=== PATIENT | female | born 1940 | race Caucasian/White ===

== ENCOUNTER → 2018-07-04 | Outpatient (CLI) | payer MEDICARE ==
[2014-09-13 13:05] VITALS: BP 102/58
[~2018-07-04] MED LIST: 0.9 % SODIUM CHLORIDE 10 ML DISP.SYRIN. ID ONE; ACET500T33 PO; CELE200C PO; CHOL100014 PO; FERR325T14 PO; GADOBUTROL 10 MMOL/10 ML VIAL INT ART ONE; IOHEXOL 300 MG/ML 50 ML VIAL. INT ART ONE; LEVO50TA5 PO; LIDOCAINE 1% Multi-Dose 20 ML VIAL. ID ONE; OMEP20CA9 PO; OXYC-323 PO; TRAM50TA PO; WARF-78 PO; WARF4TAB64 PO
--- NOTE | 2018-07-04 16:50 | KCIC ---
MR arthrogram of the right shoulder Indication: Right shoulder pain. Surgery in 2003. Pain constantly for several years. Pain when lifting. Technique: Intra-articular contrast injected into the glenohumeral joint and is reported separately. Routine 4 plane sequences were obtained, including ABER positioning. FINDINGS: Artifact: Mild to moderate motion degradation. Acromioclavicular joint: Postsurgical changes. Rotator cuff: * Supraspinatus-infraspinatus tendon: Diffuse thinning, could be related to surgical reattachment. There is susceptibility artifact obscuring the attachment, particularly at the infraspinatus. Difficult to exclude a small full-thickness tear. * Subscapularis tendon: Tendinosis, no high-grade tear * Muscle bulk: [id number]-dg-[id number] atrophy * Subacromial subdeltoid bursa: Contrast does opacify the bursa. Articular cartilage: Moderate degenerative change with more advanced chondromalacia at the anterior glenoid. Labrum: Tiny defect at the superior labrum seen on the Aber sequence. Biceps tendon: Mild tendinosis Bones: No lesion or acute fracture. Soft tissue: No acute findings. Impression: 1. Supraspinatus and infraspinatus tendon is diffusely thin, may be due to the nature of the reattachment. No definite through and through full-thickness rupture or retraction, but note that the tendon is partially obscured by susceptibility postsurgical artifact. Subscapularis tendinosis 2. Primary osteoarthritis. 3. Very small superior labral defect or tear. Electronically signed by: Gilberto Rivas MD (07/04/2018 4:47 PM) [facility]
--- NOTE | 2018-07-04 17:16 | KCIC ---
PROCEDURE: Right shoulder injection using fluoroscopic guidance, prior to MR. HISTORY: Shoulder pain. TECHNIQUE: The procedure was explained to the patient as were potential risks, including among others infection, bleeding or allergic reaction. All questions were answered. Informed written and verbal consent was obtained. The shoulder was prepped and draped in the usual sterile manner. Following administration of local anesthetic, a 22-gauge needle was advanced into the anterior shoulder. Following negative aspiration, 12 cc of a solution of 5cc Omnipaque-300 contrast, 5 cc 1% lidocaine, 10 cc normal saline, and 0.1 cc gadolinium was injected without difficulty. The needle was removed. There was good hemostasis at the injection site. The patient left in stable condition without immediate complication. Patient was advised as to possible complications to look out for, and in such event to contact her physician or the emergency room. A single spot image is obtained. FLUOROSCOPY TIME:?30 seconds Electronically signed by: Gilberto Rivas MD (07/04/2018 5:13 PM) [facility]
== END | disposition home or self-care (01) ==
LOC: KCIC 14:03
PROVIDERS: ATTEND Family Medicine
DX: M19.011 Primary osteoarthritis, right shoulder (principal); M94.211 Chondromalacia, right shoulder
CPT/HCPCS: 73040; 73222; A9585; Q9967

== ENCOUNTER → 2018-11-21 | Outpatient (CLI) | payer MEDICARE ==
[2014-09-13 13:05] VITALS: BP 102/58
[~2018-11-21] MED LIST changes: -0.9 % SODIUM CHLORIDE 10 ML DISP.SYRIN. ID ONE; +ATOR40TA59 PO; +CHOL100013 PO; +CLOP75TA PO; -GADOBUTROL 10 MMOL/10 ML VIAL INT ART ONE; -IOHEXOL 300 MG/ML 50 ML VIAL. INT ART ONE; -LIDOCAINE 1% Multi-Dose 20 ML VIAL. ID ONE; -OXYC-323 PO; +OXYC1TAB15 PO
[2018-11-21 14:22] LABS: BASO # 0.1 x10^3/uL (0.0-0.2); BASO % 1 % (0-3); EOS # 0.3 x10^3/uL (0.0-0.7); EOS % 5 % (0-3); HEMATOCRIT 41.2 % (36.0-47.0); HEMOGLOBIN 13.8 g/dL (12.0-15.5); LYMPH # 2.5 x10^3/uL (1.0-4.8); LYMPH % 36 % (24-48); MEAN CORPUSCULAR HEMOGLOBIN 31 pg (25-35); MEAN CORPUSCULAR HGB CONC 34 g/dL (31-37); MEAN CORPUSCULAR VOLUME 92 fL (79-100); MONO # 0.6 x10^3/uL (0.0-1.1); MONO % 8 % (0-9); NEUT # 3.5 x10^3uL (1.8-7.7); NEUT % 50 % (31-73); PLATELET COUNT 222 x10^3/uL (140-400); RED BLOOD COUNT 4.49 x10^6/uL (3.50-5.40)
--- NOTE | 2018-11-21 14:32 | EKG ---
[facility] [address] [place] [address] Test Date: 2018-11-21 Test Time: 14:30:11 Pat Name: ASHA LAKE Department: Room: Gender: F [employer] Development Analyst: : 1940 Requested By: GRACE DANIELS Order Number: [id number] Reading MD: Oswald Joseph Measurements Intervals [place] Rate: 61 P: 52 SC: 182 QRS: 42 QRSD: 72 T: 51 QT: 402 QTc: 406 Interpretive Statements SINUS RHYTHM Electronically Signed On 11-22-2018 14:18:52 [employer] by Oswald Joseph
[2018-11-21 14:39] LABS: ALBUMIN 3.3 g/dL (3.4-5.0); CALCIUM 9.6 mg/dL (8.5-10.1); GFR 53.9; POTASSIUM 4.1 mmol/L (3.5-5.1)
[2018-11-21 15:36] LABS: BILIRUBIN,URINE NEGATIVE (NEG); CLARITY,URINE CLEAR; COLOR,URINE YELLOW; NITRITE,URINE NEGATIVE (NEG); PH,URINE 5.5; PROTEIN,URINE NEGATIVE (NEG-TRACE)
--- NOTE | 2018-11-21 15:45 | RAD ---
EXAM: PA and Lateral Views of the Chest DATE: 11/21/2018 1:53 PM INDICATION: pre op shoulder surgery COMPARISON: No Prior FINDINGS: The heart is not enlarged. Mediastinal and hilar contours are normal. No focal parenchymal airspace opacity. Mild emphysematous changes are seen. No pleural effusion or pneumothorax. IMPRESSION: 1. No radiographic evidence for acute cardiopulmonary process. 2. Mild emphysematous changes are seen. Electronically signed by: Deric Erwin MD (11/21/2018 3:40 PM) [facility]-KC[facility]
[2018-11-21 15:56] LABS: SQUAMOUS EPITHELIAL CELL,UR FEW /LPF
[2018-11-21 15:57] LABS: BACTERIA,URINE 0 /HPF (0-FEW); RBC,URINE 0 /HPF (0-2); WBC,URINE 0 /HPF (0-4)
[2018-11-22 22:11] LABS: HEMOGLOBIN A1C 6.9 % (4.8-5.6)
== END | disposition home or self-care (01) ==
LOC: SURGPAT 13:39
PROVIDERS: ATTEND Orthopaedic Surgery Sports Medicine
DX: Z01.818 Encounter for other preprocedural examination (principal); M19.011 Primary osteoarthritis, right shoulder; J43.9 Emphysema, unspecified
CPT/HCPCS: 36415; 71046; 80048; 81001; 82040; 83036; 85025; 85610; 85651; 85730; 87641; 93005

== ENCOUNTER → 2019-09-19 | Outpatient (CLI) | payer MEDICARE ==
[2018-11-28 11:47] VITALS: BP 122/49
[~2019-09-19] MED LIST changes: +OMEP-229 PO; -OMEP20CA9 PO
--- NOTE | 2019-09-19 14:52 | KCIC ---
MR of the right tibia fibula TECHNIQUE: Right calf swelling for 6 months. History of the hand surgery. TECHNIQUE: Routine multiplanar sequences are obtained. FINDINGS: Diffuse subcutaneous edema. Muscle tissue is intact without evidence of tear, significant edema or hematoma. Visualized bones are intact. No fracture, marrow edema periosteal reaction. Artifact from the replacement is seen at the proximal [id number]. On the distal axial T2-weighted images, a thin flat fluid collection is partially seen, measuring 42 mm AP by 3 mm wide, on the distalmost axial slice, series 10, image 29. This extends into the ankle/foot beyond the [id number]. IMPRESSION: 1. Generalized subcutaneous edema. 2. Small partially visualized flat fluid collection at the lateral ankle. If of concern, dedicated MRI of the ankle could further evaluate. 3. Otherwise no acute findings are seen at the calf. Electronically signed by: Gilberto Rivas MD (09/19/2019 2:49 PM) [facility]
== END | disposition home or self-care (01) ==
LOC: KCIC MRI 11:52
PROVIDERS: ATTEND Orthopaedic Surgery
DX: R60.0 Localized edema (principal); M79.89 Other specified soft tissue disorders
CPT/HCPCS: 73718

== ENCOUNTER → 2019-12-19 | Outpatient (CLI) | payer MEDICARE ==
[2018-11-28 11:47] VITALS: BP 122/49
[~2019-12-19] MED LIST changes: -OMEP-229 PO; +OMEP20CA16 PO
--- NOTE | 2019-12-19 14:32 | KCIC ---
MRI study of the left shoulder without contrast Clinical indications: Left shoulder pain for years which has become worse in recent months. Limited range of motion. No surgical history involving the left shoulder. COMPARISON: Radiographic study of the left shoulder dated May 01, 2019. TECHNIQUE: Noncontrast MRI sequences of the left shoulder were performed in all 3 planes. FINDINGS: There is increased signal throughout the supraspinatus tendon consistent with tendinosis. There is a small full-thickness tear of the lateral aspect of the tendinous insertion onto the greater tubercle. This tear measures 4 mm transversely and 4 mm in AP dimension. There is no retraction of the tendon. Subscapularis tendon is intact. The tendon of the long of the biceps is intact. There is mild degenerative osteoarthritis and spurring of the AC joint. Type III acromial process is seen. These findings may impinge the acromial humeral space. There are moderate chronic cystic changes of the posterior lateral aspect of the humeral head secondary to chronic impingement. No marrow infiltrative process or fracture is seen. There is mild spurring of the glenohumeral joint. Small glenohumeral joint effusion is seen. Mild chondromalacia is seen. No loose body is evident. There is a small degenerative tear of the superior aspect of the glenoid labrum just posterior to the biceps anchor. This is seen on series 12 and image 10. No paralabral ganglion cyst or spinoglenoid notch ganglion cyst is seen. IMPRESSION: Small full-thickness tear of the lateral supraspinatus tendon attachment to the greater tubercle. Small degenerative tear of the superior glenoid labrum just posterior to the biceps anchor. Electronically signed by: Manuel Jordan MD (12/19/2019 2:29 PM) [facility]-KCIC[facility]
== END | disposition home or self-care (01) ==
LOC: KCIC MRI 11:58
PROVIDERS: ATTEND Orthopaedic Surgery Sports Medicine
DX: M75.102 Unspecified rotator cuff tear or rupture of left shoulder, not specified as traumatic (principal); M19.012 Primary osteoarthritis, left shoulder; M25.412 Effusion, left shoulder; M94.212 Chondromalacia, left shoulder
CPT/HCPCS: 73221

== ENCOUNTER → 2020-03-14 | Outpatient (CLI) | payer MEDICARE ==
[2018-11-28 11:47] VITALS: BP 122/49
[~2020-03-14] MED LIST changes: +DOCU-109 PO; +FLUT16SP NS; +ONDA8TAB9 PO; -WARF-78 PO; +WARF5TAB2 PO; +vitamin d3 PO
== END | disposition home or self-care (01) ==
LOC: SURGPAT 13:50
PROVIDERS: ATTEND Orthopaedic Surgery
DX: Z01.818 Encounter for other preprocedural examination (principal); Z11.59 Encounter for screening for other viral diseases; M75.122 Complete rotator cuff tear or rupture of left shoulder, not specified as traumatic
CPT/HCPCS: C9803; U0003; 36415

== ENCOUNTER 2020-03-19 05:47 | Day surgery (SDC) | payer MEDICARE ==
[~2020-03-19] VITALS: Ht 167.6 cm; Wt 89.5 kg
[~2020-03-19 05:47] MED LIST changes: -DOCU-109 PO; -ONDA8TAB9 PO
[2020-03-19] MEDS ORDERED: HYDROmorphone 2 MG/ML VIAL IV PRN (07:00)
[2020-03-19] MEDS ORDERED: ONDANSETRON PF 4 MG/2 ML VIAL. IV PRN (07:00)
[2020-03-19] MEDS ORDERED: fentaNYL PF VIAL 100 MCG/2 ML VIAL IV PRN ×2 (07:00)
[2020-03-19] MEDS ORDERED: PROCHLORPERAZINE 10 MG/2 ML VIAL. IV PRN (07:00)
[2020-03-19] MEDS ORDERED: LIDOCAINE 1% PF 2 ML VIAL. ID PRN (07:00)
[2020-03-19] MEDS ORDERED: IV RINGERS,LACTATED 1000ML 1,000 ML IV SCH (07:00)
[2020-03-19] MEDS ORDERED: MORPHINE SULFATE 2 MG/ML VIAL. IV PRN (07:00)
[2020-03-19] MEDS ORDERED: DEXAMETHASONE SOD PHOS 20 MG/5 ML VIAL. ONE (07:04)
[2020-03-19] MEDS ORDERED: MIDAZOLAM HCL/PF 2 MG/2 ML VIAL. ONE (07:04)
[2020-03-19] MEDS ORDERED: EPINEPHrine 1 MG/ML VIAL ONE (07:05)
[2020-03-19] MEDS ORDERED: EPINEPHrine VIAL 30 MG/30 ML VIAL ONE (07:05)
[2020-03-19] MEDS ORDERED: BUPIVACAINE MPF 0.5% 30 ML VIAL. ONE ×2 (07:05)
[2020-03-19] MEDS ORDERED: LIDOCAINE 1% PF 30 ML VIAL. ONE (07:05)
--- NOTE | 2020-03-19 07:38 | DISCH ---
DISCHARGE INSTRUCTIONS Condition on Discharge Condition on Discharge: Stable Activity After Discharge Activity Instructions for Disc: Walk in house, Other ROM activity Other activity instructions: arm to remain in sling, non weight bearing Bathing Instructions: Shower-keep dressing dry, No Tub Bath until see Lifting Instructions after Dis: No heavy lifting, No pulling or pushing, Do not lift >10 pounds Exercise Instruction after Dis: Progress as tolerated Driving Instructions after Dis: Do not drive Weight Bearing Status after Di: No restrictions, Full weight bearing, As tolerated, Non weight bearing Diet after Discharge Diet after Discharge: Regular Diet Texture: Regular Liquid Texture: Thin Liquid Swallowing Supervision: None needed Wound Incision Care Wound/Incision Care: Ice to area for comfort, Change dressing, Do not change dressing Other wound/incision instructi: change dressing after 2 days Wound Care Equipment: Dressings Contacting the DRKrish after DC Call your doctor for: Concerns you may have Follow-Up Follow up with: Shellie in 2 wks Treatment/Equipment after DC Adaptive Equipment Issued: Brace/splint GRACE DANIELS II, MD March 19, 2020 07:38
[2020-03-19] MEDS ORDERED: ceFAZolin 2GM PREMIX 2 GM/50 ML BAG IV ONE (08:00)
[2020-03-19] MEDS ORDERED: PROPOFOL 10 MG/ML (20ML) VIAL. IV ONE (08:01)
[2020-03-19] MEDS ORDERED: LIDOCAINE 2% PF 5 ML VIAL. ONE (08:01)
[2020-03-19] MEDS ORDERED: DEXAMETHASONE SOD PHOS 4 MG/ML VIAL ONE (08:02)
[2020-03-19] MEDS ORDERED: ePHEDrine PF IN SALINE 50 MG/10 ML SYRINGE. IV ONE (08:02)
[2020-03-19] MEDS ORDERED: ONDANSETRON PF 4 MG/2 ML VIAL. ONE ×2 (08:02)
[2020-03-19] MEDS ORDERED: fentaNYL PF VIAL 100 MCG/2 ML VIAL ONE (08:02)
[2020-03-19] MEDS ORDERED: SEVOFLURANE 61 TO 120 MINUTES. IH ONE (08:06)
[2020-03-19] MEDS ORDERED: PHENYLEPHRINE in 0.9% NACL PF 1 MG/10 ML SYRINGE. IV ONE (08:07)
--- NOTE | 2020-03-19 08:59 | PDOC4 ---
Operative Note Operative Note Date of procedure: 03/19/2020 Surgeon: Kee Daniels Forge Tender: Travon Maldonado Preoperative diagnosis: Left rotator cuff tear Postoperative diagnosis: Same Procedure performed: Arthroscopic left shoulder rotator cuff repair Anesthesia: General plus regional nerve block Blood loss: 5 mL Findings: #1 softening at glenoid cartilage with small amount of fraying anteriorly. Humeral head cartilage had grade 1-2 changes as well. 2. Degenerative fraying but intact ligament labrum circumferentially 3. No loose bodies 4. Biceps showed no obvious pathology 5. Incomplete supraspinatus tear 6. Remainder of rotator cuff intact Complications: None Components inserted: [employer] helacoil suture anchor x1 Reason for procedure: Patient is a very pleasant female who I seen frequently in my clinic who developed left shoulder pain. Please see my outpatient notes for further details. She had tried and failed conservative therapies including a rehab program, and injections. Because of this, an MRI was obtained. Clinical and radiographic examination were consistent with the above preoperative diagnosis. We had a discussion of the risks, benefits, and alternatives to the above surgery and she wished to proceed. Description of procedure: Patient was greeted in the preoperative holding area by myself or the correct extremity was verified and marked. She had placement of the regional nerve block by the anesthesiology team. She was then taken back to the operating room, her antibiotics started as she was brought back. Once in the operating room, she underwent successful induction of a general anesthetic after being transferred gently supine onto the operating room table. She was then sat up in a beachchair position maintaining her C-spine in neutral position. She was secured to bed with all pressure points padded including a large pillow under her legs. We then proceeded to prep and drape left upper extremity in her usual sterile fashion including [place] at the periphery. Standard preoperative timeout was conducted. I then palpated marked surface anatomy and used a spinal needle to localize a posterior superior portal, I incised skin in accordance with this and introduce a blunt arthroscopic trocar into the glenohumeral joint followed by the camera. I then used a spinal needle to localize an anterosuperior portal, incised skin and dilated this hole. I then introduced my arthroscopic probe and conducted my diagnostic arthroscopy with above-noted findings. After this, I debrided some of the frayed labrum and some synovial tissue for improved visualization. I then slightly repositioned her arm, and redirected my attention to the intra-articular portion of the supraspinatus which had fraying. I passed a PDS suture through this from a lateral portal using a spinal needle. After this, I removed my arthroscopic instrumentation from the glenohumeral joint and repositioned to the subacromial space. I then used a spinal needle to localize a lateral portal and after accomplishing this, incised skin, introduce my blunt arthroscopic trocar into the subacromial space. I then performed a bursectomy, her shoulder was a little tight and she did have abundant bursa. I used a combination of arthroscopic shaver and electrocautery device. After I felt that adequate visualization I found the PDS suture and was easily able to violate the substance of the tendon with a blunt trocar. At this point, I placed a trocar through the lateral portal. I then began debriding the rotator cuff, and footprint, taking care not to decorticate. The small portion of this tear was full-thickness. After this, I created an accessory anterolateral portal under spinal localization for suture management. I then placed my suture anchor, and had good purchase. I then shoulder my limbs out through my anterolateral portal, leaving one behind. I then placed 2 simple sutures through her rotator cuff using the suture passing device. I then tied these down using arthroscopic knot tying techniques. The tear was stable to probing and gentle movement of the arm. The suture ends were cut. After this, I removed the excess arthroscopic fluid and instrumentation from her shoulder. We then closed portals with simple interrupted 3-0 nylon. The arm and shoulder were cleansed and dried and a sterile bulky dressing was applied followed by an abduction pillow sling. The patient was laid supine and transferred on the spine to the recovery room cart and taken to PACU in stable and extubated condition. Postoperative plan is discharged home. We will get her started on physical therapy. She will be nonweightbearing. I will see her back in 2 weeks, sooner should a problem arise. KEE DANIELS II, MD March 19, 2020 08:59
[2020-03-19] MEDS ORDERED: OXYC1TAB15 PO (09:05)
[2020-03-19] MEDS ORDERED: DOCU-109 PO (09:06)
[2020-03-19] MEDS ORDERED: ONDA8TAB9 PO (09:07)
[2020-03-19 09:40] VITALS: BP 157/65
== END 2020-03-19 10:28 | disposition home or self-care (01) ==
LOC: SURG 05:47
PROVIDERS: ATTEND Orthopaedic Surgery Sports Medicine
DX: S46.012A Strain of muscle(s) and tendon(s) of the rotator cuff of left shoulder, initial encounter (principal); M24.112 Other articular cartilage disorders, left shoulder; M25.812 Other specified joint disorders, left shoulder; E55.9 Vitamin D deficiency, unspecified; E03.9 Hypothyroidism, unspecified; K21.9 Gastro-esophageal reflux disease without esophagitis; M19.90 Unspecified osteoarthritis, unspecified site; Z86.73 Personal history of transient ischemic attack (TIA), and cerebral infarction without residual deficits; X58.XXXA Exposure to other specified factors, initial encounter; Y93.89 Activity, other specified; Y92.89 Other specified places as the place of occurrence of the external cause; Y99.8 Other external cause status; Z91.018 Allergy to other foods; Z79.899 Other long term (current) drug therapy
CPT/HCPCS: 29822; 29827; A7015; C1713; J0171; J0696; J1100; J2250; J2370; J2405; J2704; J3010; J3490; J0690